=== PATIENT | female | born 1990 | race Two or more races ===

== ENCOUNTER 2024-09-30 12:36 | Inpatient (IN) | payer OTHER ==
[~2024-09-30] VITALS: Ht 167.6 cm; Wt 126.0 kg
[2024-09-30] MEDS: ACETAMINOPHEN 325 MG TAB PO ONE (13:05)
--- NOTE | 2024-09-30 13:12 | ED.PDOC ---
GI ASSESSMENT HPI Comments 33-year-old female presents with a chief complaint of abdominal pain x 3 hours with associated palpitations, fever, nausea, vomiting, diarrhea, and hematuria. Patient states that in the past she was Septic in the past and states that she feels similar to that time. Patient mentions that she has been having the palpitations for the past 3 hours. Patient is not actively vomiting during triage assessment. Chief Complaint: Flank Pain Time Seen by MD: 13:04 Reviewed Notes: Medications, Allergies Allergies: Coded Allergies: Iodine (Verified Allergy, Unknown, 09/30/24) Ketorolac Tromethamine (Verified Allergy, Unknown, 09/30/24) Shellfish Allergy (Verified Allergy, Unknown, 09/30/24) Information Source: Patient Mode of Arrival: Ambulatory Timing: Hours Duration: Since onset Prehospital treatment: None Quality: Sharp Vomitus: Food Particles Stool: Watery, Brown Severity: Moderate Recent: None Recent Hx of: None Pain Location: Diffuse Associated sign and symptoms: Nausea, Vomiting, Diarrhea, Abdominal Pain Past Medical History Past Medical History (Other): SEPSIS Surgical History: Denies all surgeries 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 Family History Family History: Reviewed,noncontributory to illness Social History Smoker: Non-Smoker Alcohol: Denies ETOH Use Drugs: Denies Drug Use Lives In: Home Constitutional: reports: fever; denies: chills, diaphoresis, fatigue, malaise, sweats, weakness, others EENTM: denies: blurred vision, double vision, ear bleeding, ear discharge, ear drainage, ear pain, ear ringing, eye pain, eye redness, hearing loss, mouth pain, mouth swelling, nasal discharge, nose bleeding, nose congestion, nose pain, photophobia, tearing, throat pain, throat swelling, voice changes, others Respiratory: denies: cough, hemoptysis, orthopnea, SOB at rest, shortness of breath, SOB with excertion, stridor, wheezing, others Cardiovascular: reports: palpitations; denies: chest pain, dizzy spells, diaphoresis, Dyspnea on exertion, edema, irregular heart beat, left arm pain, lightheadedness, PND, syncope, others Gastrointestinal: reports: abdominal pain, diarrhea, nausea, vomiting; denies: abdomen distended, blood streaked bowels, constipated, dysphagia, difficulty swallowing, hematemesis, melena, poor appetite, poor fluid intake, rectal bleeding, rectal pain, others Genitourinary: reports: hematuria; denies: abnormal vagina bleeding, burning, dyspareunia, dysuria, flank pain, frequency, incontinence, pain, , vagina discharge, urgency, others Neurological: denies: dizziness, fainting, headache, left sided numbness, left sided weakness, numbness, paresthesia, pre-existing deficit, right sided numbness, right sided weakness, seizure, speech problems, tingling, tremors, weakness, others Musculoskeletal: denies: back pain, gout, joint pain, joint swelling, muscle pain, muscle stiffness, neck pain, others Integumetry: denies: bruises, change in color, change in hair/nails, dryness, laceration, lesions, lumps, rash, wounds, others Allergic/Immunocompromised: denies: Difficulty Healing, Frequent Infections, Hives, Itching, others Hematologic/Lymphatic: denies: anemia, blood clots, easy bleeding, easy bruising, swollen glands, others Endocrine: denies: excessive hunger, excessive sweating, excessive thirst, excessive urination, flushing, intolerance to cold, intolerance to heat, unexplained weight gain, unexplained weight loss, others Psychiatric: denies: anxiety, bipolar disorder, depression, hopeless, panic disorder, schizophrenia, sleepless, suicidal, others All Other Systems: Reviewed and Negative Physical Exam General Appearance: No Apparent Distress, Normal HEENT: Normal ENT Inspection, Pharynx Normal, TMs Normal Neck: Full Range of Motion, Non-Tender, Normal, Normal Inspection Respiratory: Chest Non-Tender, Lungs Clear, No Accessory Muscle Use, No Respiratory Distress, Normal Breath Sounds Cardiovascular: No Edema, No JVD, No Murmur, No Gallop, Normal Peripheral Pulses, Regular Rate/Rhythm Breast Exam: Deferred Gastrointestinal: No Organomegaly, Non Tender, No Pulsatile Mass, Normal Bowel Sounds, Soft Genitalia: Deferred Pelvic: Deferred Rectal: Deferred Extremities: No calf tenderness, Normal capillary refill, Normal inspection, Normal range of motion, Non-tender, No pedal edema Musculoskeletal : Apperance: Normal Neurologic: Alert, 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 Was a procedure done?: No GI differential Dx Differential Diagnosis: Cholecystitis, Constipation, Gastritis/PUD, Gastroenteritis, GI hemorrhage, Hepatitis, Pancreatitis, Electrolyte Imbalance, Viral, Hypovolemia, Malnutrition X-Ray, Labs, Meds, VS Vital Signs Date Time Temp Pulse Resp B/P (MAP) Pulse Ox O2 Delivery O2 Flow Rate FiO2 09/30/24 16:04 109 14 129/70 09/30/24 16:00 105 09/30/24 16:00 106 11 129/70 (89) 97 09/30/24 15:37 130 14 113/85 09/30/24 13:59 135 14 94 Room Air* 0 21 09/30/24 13:56 99.7 134 14 130/68 (88) 94 99.7 09/30/24 12:54 100.4 146 18 110/80 (90) 94 100.4 Lab Test 09/30/24 13:36 09/30/24 12:04 Range/Units White Blood Count 10.9 H 4.4-10.8 10^3/uL Red Blood Count 5.03 4.0-5.20 10^6/uL Hemoglobin 13.7 12.2-16.2 g/dL Hematocrit 41.4 36.0-46.0 % Mean Corpuscular Volume 82.3 80.0-100.0 fL Mean Corpuscular Hemoglobin 27.2 L 28.0-32.0 pg Mean Corpuscular Hemoglobin Concent 33.0 32.0-36.0 g/dL Red Cell Distribution Width 16.0 H 11.8-14.3 % Platelet Count 320 140-450 10^3/uL Mean Platelet Volume 9.2 6.9-10.8 fL Neutrophils (%) (Auto) 77.7 37.0-80.0 % Lymphocytes (%) (Auto) 15.8 10.0-50.0 % Monocytes (%) (Auto) 5.6 0.0-12.0 % Eosinophils (%) (Auto) 0.6 0.0-7.0 % Basophils (%) (Auto) 0.3 0.0-2.0 % Neutrophils # (Auto) 8.4 1.6-8.6 10 ^3/uL Lymphocytes # (Auto) 1.7 0.4-5.4 10 ^3/uL Monocytes # (Auto) 0.6 0-1.3 10 ^3/uL Eosinophils # (Auto) 0.1 0-0.8 10 ^3/uL Basophils # (Auto) 0 0-0.2 10 ^3/uL Nucleated Red Blood Cells 0.0 % Prothrombin Time 12.3 H 9.3-11.8 sec Prothrombin Time INR 1.18 H 0.9-1.15 Activated Partial Thromboplast Time 25.3 24.5-34.5 SEC Sodium Level 141 136-145 mmol/L Potassium Level 3.9 3.5-5.1 mmol/L Chloride Level 109 H 98-107 mmol/L Carbon Dioxide Level 21 20-31 mmol/L Anion Gap 11 5-15 Blood Urea Nitrogen 11 9-23 mg/dL Creatinine 0.85 0.550-1.02 mg/dL Glomerular Filtration Rate Calc 94 >90 mL/min BUN/Creatinine Ratio 12.9 10.0-20.0 Serum Glucose 86 74-106 mg/dL Lactic Acid Level 1.6 0.4-2.0 mmol/L Calcium Level 10.6 H 8.7-10.4 mg/dL Total Bilirubin 0.2 0.2-1.0 mg/dL Aspartate Amino Transferase (AST) 26 13-40 U/L Alanine Aminotransferase (ALT) 33 7-40 U/L Alkaline Phosphatase 172 H 46-116 U/L Total Protein 7.0 5.7-8.2 g/dL Albumin 4.7 3.2-4.8 g/dL Urine Color Light-red Yellow Urine Clarity Ex.turbid Clear Urine pH 6.5 5.0-9.0 Urine Specific [place] 1.014 1.001-1.035 Urine Protein 1+ H Negative Urine Ketones Negative Negative Urine Blood 3+ H Negative /uL Urine Nitrite Negative Negative Urine Bilirubin Negative Negative Urine Urobilinogen Normal Negative mg/dL Urine Leukocyte Esterase 1+ Negative /uL Urine RBC 65194 0 - 4 /hpf Urine Microscopic WBC 14 H 0-5 /HPF Urine Squamous Epithelial Cells None seen <5 /hpf Urine Bacteria None seen None Seen /hpf Urine Glucose Normal Normal mg/dL Current Medications Medications (Trade) Dose Ordered Sig/Arturo Route Start Time Stop Time Status Last Admin Lactated Ringer's 1,700 ml @ 1,700 mls/hr ONCE ONCE IV 09/30/24 13:15 09/30/24 14:14 DC 09/30/24 14:22 Vancomycin HCl 200 ml @ 200 mls/hr ONCE ONCE IV 09/30/24 13:15 09/30/24 14:14 DC 09/30/24 14:27 Cefepime HCl 50 ml @ 50 mls/hr ONCE ONCE IV 09/30/24 14:30 09/30/24 15:29 DC 09/30/24 15:45 Ondansetron HCl (Zofran) 4 mg ONCE ONCE IV 09/30/24 14:30 09/30/24 14:32 DC 09/30/24 14:41 Morphine Sulfate 4 mg ONCE ONCE IV 09/30/24 15:45 09/30/24 15:46 DC 09/30/24 15:37 Ondansetron HCl (Zofran) 4 mg ONCE ONCE IV 09/30/24 15:45 09/30/24 15:46 DC 09/30/24 15:52 Time of 1ST Reevaluation: 13:34 Reevaluation 1ST: Unchanged Patient Education/Counseling: Diagnosis, Treatment Family Education/Counseling: No Family Present SEPSIS Sepsis Screen Physician Orders Chest Portable (09/30/24 13:05) Accucheck (09/30/24 13:05) Blood Culture (09/30/24 13:05) Notify Md If Map <65 Or Bp<90 (09/30/24 13:05) If Map<65 Start Vasopressor (09/30/24 13:05) Sepsis Reassesment After Fluid (09/30/24 14:05) Ct Ab Pel Wo Con-No Oral Or Iv (09/30/24 16:19) Vital Signs Date Time Temp Pulse Resp B/P (MAP) Pulse Ox O2 Delivery O2 Flow Rate FiO2 09/30/24 16:04 109 14 129/70 09/30/24 16:00 105 09/30/24 16:00 106 11 129/70 (89) 97 09/30/24 15:37 130 14 113/85 09/30/24 13:59 135 14 94 Room Air* 0 21 09/30/24 13:56 99.7 134 14 130/68 (88) 94 99.7 09/30/24 12:54 100.4 146 18 110/80 (90) 94 100.4 Laboratory Tests Test 09/30/24 13:36 Lactic Acid Level 1.6 mmol/L (0.4-2.0) White Blood Count 10.9 10^3/uL (4.4-10.8) H Medications Medications Dose Ordered Sig/Arturo Route Start Time Stop Time Status Last Admin Dose Admin Cefepime HCl 50 ml @ 50 mls/hr ONCE ONCE IV 09/30/24 14:30 09/30/24 15:29 DC 09/30/24 15:45 Lactated Ringer's 1,700 ml @ 1,700 mls/hr ONCE ONCE IV 09/30/24 13:15 09/30/24 14:14 DC 09/30/24 14:22 Morphine Sulfate 4 mg ONCE ONCE IV 09/30/24 15:45 09/30/24 15:46 DC 09/30/24 15:37 Ondansetron HCl 4 mg ONCE ONCE IV 09/30/24 14:30 09/30/24 14:32 DC 09/30/24 14:41 Ondansetron HCl 4 mg ONCE ONCE IV 09/30/24 15:45 09/30/24 15:46 DC 09/30/24 15:52 Vancomycin HCl 200 ml @ 200 mls/hr ONCE ONCE IV 09/30/24 13:15 09/30/24 14:14 DC 09/30/24 14:27 Departure 1 Departure Time of Disposition: 18:30 (Patient presented likely septic from pyelonephritis. Patient is empirically cover with antibiotics given fluids and then we will admit patient for further workup.) Impression: Primary Impression: Sepsis Qualified Codes: A41.9 - Sepsis, unspecified organism Additional Impressions: Pyelonephritis Generalized weakness Disposition: ADMITTED INPATIENT Admit to: Tele Condition: Guarded Critical Care Note Critical Care Time?: Yes Critical care comment: Sepsis Authorized and Performed by: Katja Barakat MD Total critical care time: Approximately 58 minutes Due to a high probability of clinically significant, life threatening deterioration, the patient required my highest level of preparedness to intervene emergently and I personally spent this critical care time directly and personally managing the patient. This critical care time included obtaining a history; examining the patient; pulse oximetry; ordering and review of studies; arranging urgent treatment with development of a management plan; evaluation of patient's response to treatment; frequent reassessment; and, discussions with other providers. This critical care time was performed to assess and manage the high probability of imminent, life-threatening deterioration that could result in multi-organ failure. It was exclusive of separately billable procedures and treating other patients and teaching time. Please see my other sections and the rest of the note for further information on patient assessment and treatment. Stability Stability form required: No Heart Score Heart Score: Heart Score Response (Comments) Value History N/A 0 EKG N/A 0 Age N/A 0 Risk Factors N/A 0 Troponin N/A 0 Total 0 I personally scribed for KATJA BARAKAT MD ([email or web address]) on 09/30/24 at 13:12. Electronically submitted by Ifeanyi Chowdhury ([email or web address]). KATJA BARAKAT MD Sep 30, 2024 13:12
--- NOTE | 2024-09-30 13:38 | DVH ---
CHEST RADIOGRAPH Indication: fever Technique: Single frontal view of the chest was obtained COMPARISON: None FINDINGS: Lines and Tubes: None Lungs: Clear Pleura: No effusion. No pneumothorax. Cardiomediastinal contours: Unremarkable Bones: Unremarkable IMPRESSION: No acute disease.
[2024-09-30 13:51] LABS: Hematocrit 41.4 % (36.0-46.0); Hemoglobin 13.7 g/dL (12.2-16.2); Mean Corpuscular Hemoglobin 27.2 pg (28.0-32.0); Mean Corpuscular Volume 82.3 fL (80.0-100.0); Nucleated Red Blood Cells % 0.0 %
[2024-09-30 13:59] VITALS: PULSE 135; RESP 14; O2SAT 94
[2024-09-30 14:04] LABS: INR 1.18 (0.9-1.15); Partial Thromboplastin Time 25.3 SEC (24.5-34.5); Prothrombin Time 12.3 sec (9.3-11.8)
[2024-09-30 14:05] LABS: Alanine Aminotransferase 33 U/L (7-40); Albumin 4.7 g/dL (3.2-4.8); Alkaline Phosphatase 172 U/L (46-116); Anion Gap 11 (5-15); BUN/Creatinine Ratio 12.9 (10.0-20.0); Bilirubin, Total 0.2 mg/dL (0.2-1.0); Blood Urea Nitrogen 11 mg/dL (9-23); Calcium 10.6 mg/dL (8.7-10.4); Carbon Dioxide 21 mmol/L (20-31); Chloride 109 mmol/L (98-107); Glucose 86 mg/dL (74-106); Potassium 3.9 mmol/L (3.5-5.1); Sodium 141 mmol/L (136-145); Total Protein 7.0 g/dL (5.7-8.2)
[2024-09-30] MEDS: LACTATED RINGER'S 1,700 ML IV ONE (14:22)
[2024-09-30] MEDS: VANCOMYCIN 1GM/200ML PM 200 ML IV ONE (14:27)
[2024-09-30] MEDS: ONDANSETRON HCL 4 MG/2 ML VIAL IV ONE ×2 (14:41→15:52)
[2024-09-30] MEDS: MORPHINE SULFATE 4 MG/ML SYR/VIAL IV ONE (15:37)
[2024-09-30 15:39] LABS: Urine Protein, UAD 1+ (Negative)
[2024-09-30] MEDS: CEFEPIME 1GM/ 50ML 50 ML IV ONE (15:45)
[2024-09-30] MEDS ORDERED: ACETAMINOPHEN 325 MG TAB PO PRN (17:15)
--- NOTE | 2024-09-30 17:24 | DVH ---
COMPUTERIZED TOMOGRAPHY ABDOMEN AND PELVIS WITHOUT CONTRAST REASON FOR EXAM: flank pain COMPARISON: None TECHNIQUE: Spiral scans were acquired from the diaphragm to the symphysis pubis without intravenous c ontrast administration. 2-D coronal and sagittal reformatted images were provided. Radiation optimiza tion: All CT scans at this facility use at least one of these dose optimization techniques: Automated exposure control mA and/or kV adjustment per patient size (includes targeted exams where dose is mat ched to clinical indication) or iterative reconstruction. RADIATION DOSE: CTDI: 25 mGy DLP: 1305 mGy-cm FINDINGS: The visualized lung bases are clear. There is no pleural effusion. There is no pericardial effusion. The spleen is not enlarged. The liver is normal in size and contour. The gallbladder is surgically absent. Evaluation of the abdominal organs is suboptimal in the absence of intravenous contrast. Une nhanced appearance of the pancreas is unremarkable. The adrenal glands are normal. The kidneys are s imilar in size. There is no hydronephrosis of either kidney. There is no ureteral or bladder calculus . There is a 3 mm nonobstructive calculus at the inferior pole of the left kidney. There is no abdomi nal aortic aneurysm. There is no pathologic lymphadenopathy by size criteria within the limitations of this noncontrast study. There is no free fluid in the abdomen or pelvis. The uterus and ovaries a re not seen and may be absent. The colonic stool burden is small. The appendix is normal. There is no pathologic distention of the small bowel. No acute osseous abnormality is identified. There is old healed fracture of the right 7th rib laterally. IMPRESSION: Nonobstructive 3 mm calculus at the inferior pole of the left kidney. No ureteral or bladder calculus . No hydronephrosis of either kidney. Normal appendix The uterus and ovaries are not seen and may be absent. Correlate clinically.
[2024-09-30] MEDS: PANTOPRAZOLE 40 MG/10 ML VIAL INJ IV ONE (17:50)
[2024-09-30] MEDS: cefTRIAXone 1GM/50ML D5W 50 ML IV SCH (17:51)
[2024-09-30] MEDS: SODIUM CHLORIDE 0.9% 1,000 ML IV ONE (17:51)
[2024-09-30 19:17] VITALS: PULSE 115; RESP 14; O2SAT 99
--- NOTE | 2024-09-30 19:50 | DVHHP2 ---
History of Present Illness Reason for Visit: Abdominal pain History of Present Illness 33-year-old female presents for evaluation of abdominal pain. Patient reports a one day history of epigastric abdominal pain that radiates to her back with associated nausea, vomiting and diarrhea. No fever or chills. No other acute complaints reported. Past Medical History Asthma Past Surgical History Denies Family History Noncontributory Smoke: No ALCOHOL: none Drugs: None Review of Systems Review of Systems Review of systems are currently negative otherwise addressed in HPI. Allergies: Coded Allergies: Iodine (Verified Allergy, Unknown, 09/30/24) Ketorolac Tromethamine (Verified Allergy, Unknown, 09/30/24) Shellfish Allergy (Verified Allergy, Unknown, 09/30/24) Medications Current Medications Medications Dose Ordered Sig/Arturo Route Start Time Stop Time Status Last Admin Dose Admin Ceftriaxone Sodium 50 ml @ 100 mls/hr DAILY@09 IV 09/30/24 17:23 09/30/24 17:51 100 MLS/HR Pantoprazole Sodium 40 mg DAILY IV 10/01/24 10:00 Acetaminophen/ Hydrocodone Bitart 1 tab Q4HP PRN PO 09/30/24 17:15 Ondansetron HCl 4 mg Q4HP PRN IV 09/30/24 17:15 Acetaminophen 650 mg Q6HP PRN PO 09/30/24 17:15 Morphine Sulfate 2 mg Q6HPRN PRN IV 09/30/24 19:45 UNV Exam Vital Signs Vital Signs Date Time Temp Pulse Resp B/P (MAP) Pulse Ox O2 Delivery O2 Flow Rate FiO2 09/30/24 18:10 138 15 141/87 (105) 96 09/30/24 13:59 Room Air* 0 21 09/30/24 13:56 99.7 99.7 Exam Gen: 33-year-old female in no apparent distress, morbidly obese. Skin: Warm, dry, normal color and texture, no rash. HEENT: Normocephalic atraumatic, mucous membranes moist and pink. Neck: Cervical and supraclavicular nodes normal without enlargement, trachea is midline, thyroid gland is normal without masses. Pulmonary: Clear to auscultation and percussion bilaterally. Cardiac: Regular rate and rhythm. No murmur Abdomen: Soft, nontender, nondistended, bowel sounds present all 4 quadrants, no guarding, no rigidity, no organomegaly. Extremities: No cyanosis, clubbing, no edema Neuro: Cranial nerves II through XII grossly intact, normal affect and speech, no focal motor deficits. Labs/Xrays ORDERING PHYSICIAN: KATJA WATSON MD PROCEDURE(s): CXRP - CHEST PORTABLE REASON: fever ORDER NUMBER(s): [id number], ACCESSION NUMBER(s): [id number] CHEST RADIOGRAPH Indication: fever Technique: Single frontal view of the chest was obtained COMPARISON: None FINDINGS: Lines and Tubes: None Lungs: Clear Pleura: No effusion. No pneumothorax. Cardiomediastinal contours: Unremarkable Bones: Unremarkable IMPRESSION: No acute disease. RING PHYSICIAN: KATJA WATSON MD PROCEDURE(s): ABPL - CT AB PEL WO CON-NO ORAL OR IV REASON: flank pain ORDER NUMBER(s): [id number], ACCESSION NUMBER(s): [id number] COMPUTERIZED TOMOGRAPHY ABDOMEN AND PELVIS WITHOUT CONTRAST REASON FOR EXAM: flank pain COMPARISON: None TECHNIQUE: Spiral scans were acquired from the diaphragm to the symphysis pubis without intravenous contrast administration. 2-D coronal and sagittal reformatted images were provided. Radiation optimization: All CT scans at this facility use at least one of these dose optimization techniques: Automated exposure control mA and/or kV adjustment per patient size (includes targeted exams where dose is matched to clinical indication) or iterative reconstruction. RADIATION DOSE: CTDI: 25 mGy DLP: 1305 mGy-cm FINDINGS: The visualized lung bases are clear. There is no pleural effusion. There is no pericardial effusion. The spleen is not enlarged. The liver is normal in size and contour. The gallbladder is surgically absent. Evaluation of the abdominal organs is suboptimal in the absence of intravenous contrast. Unenhanced appearance of the pancreas is unremarkable. The adrenal glands are normal. The kidneys are similar in size. There is no hydronephrosis of either kidney. There is no ureteral or bladder calculus. There is a 3 mm nonobstructive calculus at the inferior pole of the left kidney. There is no abdominal aortic aneurysm. There is no pathologic lymphadenopathy by size criteria within the limitations of this noncontrast study. There is no free fluid in the abdomen or pelvis. The uterus and ovaries are not seen and may be absent. The colonic stool burden is small. The appendix is normal. There is no pathologic distention of the small bowel. No acute osseous abnormality is identified. There is old healed fracture of the right 7th rib laterally. IMPRESSION: Nonobstructive 3 mm calculus at the inferior pole of the left kidney. No ureteral or bladder calculus. No hydronephrosis of either kidney. Normal appendix The uterus and ovaries are not seen and may be absent. Correlate clinically. Labs Test 09/30/24 17:59 09/30/24 13:36 09/30/24 12:04 Range/Units Lipase 36 12-53 U/L White Blood Count 10.9 H 4.4-10.8 10^3/uL Red Blood Count 5.03 4.0-5.20 10^6/uL Hemoglobin 13.7 12.2-16.2 g/dL Hematocrit 41.4 36.0-46.0 % Mean Corpuscular Volume 82.3 80.0-100.0 fL Mean Corpuscular Hemoglobin 27.2 L 28.0-32.0 pg Mean Corpuscular Hemoglobin Concent 33.0 32.0-36.0 g/dL Red Cell Distribution Width 16.0 H 11.8-14.3 % Platelet Count 320 140-450 10^3/uL Mean Platelet Volume 9.2 6.9-10.8 fL Neutrophils (%) (Auto) 77.7 37.0-80.0 % Lymphocytes (%) (Auto) 15.8 10.0-50.0 % Monocytes (%) (Auto) 5.6 0.0-12.0 % Eosinophils (%) (Auto) 0.6 0.0-7.0 % Basophils (%) (Auto) 0.3 0.0-2.0 % Neutrophils # (Auto) 8.4 1.6-8.6 10 ^3/uL Lymphocytes # (Auto) 1.7 0.4-5.4 10 ^3/uL Monocytes # (Auto) 0.6 0-1.3 10 ^3/uL Eosinophils # (Auto) 0.1 0-0.8 10 ^3/uL Basophils # (Auto) 0 0-0.2 10 ^3/uL Nucleated Red Blood Cells 0.0 % Prothrombin Time 12.3 H 9.3-11.8 sec Prothrombin Time INR 1.18 H 0.9-1.15 Activated Partial Thromboplast Time 25.3 24.5-34.5 SEC Sodium Level 141 136-145 mmol/L Potassium Level 3.9 3.5-5.1 mmol/L Chloride Level 109 H 98-107 mmol/L Carbon Dioxide Level 21 20-31 mmol/L Anion Gap 11 5-15 Blood Urea Nitrogen 11 9-23 mg/dL Creatinine 0.85 0.550-1.02 mg/dL Glomerular Filtration Rate Calc 94 >90 mL/min BUN/Creatinine Ratio 12.9 10.0-20.0 Serum Glucose 86 74-106 mg/dL Lactic Acid Level 1.6 0.4-2.0 mmol/L Calcium Level 10.6 H 8.7-10.4 mg/dL Total Bilirubin 0.2 0.2-1.0 mg/dL Aspartate Amino Transferase (AST) 26 13-40 U/L Alanine Aminotransferase (ALT) 33 7-40 U/L Alkaline Phosphatase 172 H 46-116 U/L Total Protein 7.0 5.7-8.2 g/dL Albumin 4.7 3.2-4.8 g/dL Urine Color Light-red Yellow Urine Clarity Ex.turbid Clear Urine pH 6.5 5.0-9.0 Urine Specific [place] 1.014 1.001-1.035 Urine Protein 1+ H Negative Urine Ketones Negative Negative Urine Blood 3+ H Negative /uL Urine Nitrite Negative Negative Urine Bilirubin Negative Negative Urine Urobilinogen Normal Negative mg/dL Urine Leukocyte Esterase 1+ Negative /uL Urine RBC 83614 0 - 4 /hpf Urine Microscopic WBC 14 H 0-5 /HPF Urine Squamous Epithelial Cells None seen <5 /hpf Urine Bacteria None seen None Seen /hpf Urine Glucose Normal Normal mg/dL SEPSIS Sepsis Screen Date sepsis recognized/suspect: Sep 30, 2024 Time Sepsis recognized/suspect: 1445 Recent Procedure: No On Antibiotic Therapy: Yes Respiratory Rate >20: No Heart Rate >90: Yes Temp<36 C (96.8 F) or >38.3 C: Yes SBP <90 or MAP <65 mmHG: No New Acute Mental Status Change: No Is the patient on CPAP, BIPAP,: No Physician Orders Chest Portable (09/30/24 13:05) Accucheck (09/30/24 13:05) Blood Culture (09/30/24 13:05) Notify Md If Map <65 Or Bp<90 (09/30/24 13:05) If Map<65 Start Vasopressor (09/30/24 13:05) Sepsis Reassesment After Fluid (09/30/24 14:05) Ct Ab Pel Wo Con-No Oral Or Iv (09/30/24 16:19) Basic Metabolic Panel (10/01/24 04:00) Sodium Chloride 0.9% (09/30/24 17:15) Pantoprazole (Protonix) (10/01/24 10:00) Admit (09/30/24 17:01) Hydrocodone-Acet 5/325mg Tab ([place] 32 (09/30/24 17:15) Ondansetron Hcl (Zofran) (09/30/24 17:15) Complete Blood Count (10/01/24 04:00) Condition: Stable (09/30/24 17:01) Acetaminophen Tablet (Tylenol Tablet) (09/30/24 17:15) Clear Liq Diet (09/30/24 Dinner) Bedrest With Bathroom Privileg (09/30/24 17:01) Ceftriaxone 1gm/50ml D5w (Rocephin) (09/30/24 17:23) Drug Screen (09/30/24 19:42) Morphine Sulfate Injection (09/30/24 19:45) Metoclopramide Injection (Reglan Injecti (09/30/24 19:45) Vital Signs Date Time Temp Pulse Resp B/P (MAP) Pulse Ox O2 Delivery O2 Flow Rate FiO2 09/30/24 18:10 138 15 141/87 (105) 96 09/30/24 16:04 109 14 129/70 09/30/24 16:00 105 09/30/24 16:00 106 11 129/70 (89) 97 09/30/24 15:37 130 14 113/85 09/30/24 13:59 135 14 94 Room Air* 0 21 09/30/24 13:56 99.7 134 14 130/68 (88) 94 99.7 09/30/24 12:54 100.4 146 18 110/80 (90) 94 100.4 Laboratory Tests Test 09/30/24 13:36 Lactic Acid Level 1.6 mmol/L (0.4-2.0) White Blood Count 10.9 10^3/uL (4.4-10.8) H Medications Medications Dose Ordered Sig/Arturo Route Start Time Stop Time Status Last Admin Dose Admin Cefepime HCl 50 ml @ 50 mls/hr ONCE ONCE IV 09/30/24 14:30 09/30/24 15:29 DC 09/30/24 15:45 50 MLS/HR Ceftriaxone Sodium 50 ml @ 100 mls/hr DAILY@09 IV 09/30/24 17:23 09/30/24 17:51 100 MLS/HR Lactated Ringer's 1,700 ml @ 1,700 mls/hr ONCE ONCE IV 09/30/24 13:15 09/30/24 14:14 DC 09/30/24 14:22 1,700 MLS/HR Morphine Sulfate 4 mg ONCE ONCE IV 09/30/24 15:45 09/30/24 15:46 DC 09/30/24 15:37 4 MG Ondansetron HCl 4 mg ONCE ONCE IV 09/30/24 14:30 09/30/24 14:32 DC 09/30/24 14:41 4 MG Ondansetron HCl 4 mg ONCE ONCE IV 09/30/24 15:45 09/30/24 15:46 DC 09/30/24 15:52 4 MG Pantoprazole Sodium 40 mg ONCE ONCE IV 09/30/24 17:15 09/30/24 17:23 DC 09/30/24 17:50 40 MG Sodium Chloride 1,000 ml @ 100 mls/hr Q10H ONCE IV 09/30/24 17:15 10/01/24 03:14 09/30/24 17:51 100 MLS/HR Vancomycin HCl 200 ml @ 200 mls/hr ONCE ONCE IV 09/30/24 13:15 09/30/24 14:14 DC 09/30/24 14:27 200 MLS/HR Assessment/Plan Assessment/Plan Assessment Acute abdominal pain Morbid obesity Opioid dependence Chronic pain syndrome UTI Plan Admit the patient to [facility] to the hospitalist Maria Esther Pain management Continue treatment per orders. Plan discussed with: Patient My Orders Orders - EULALIO SAMPSON Procedure Category Date Status Time Basic Metabolic Panel LAB 10/01/24 Verified 04:00 Sodium Chloride 0.9% PHA 09/30/24 In Process 17:15 Pantoprazole PHA 10/01/24 In Process (Protonix) 10:00 Admit ADMIT 09/30/24 Transmitted 17:01 Hydrocodone-Acet PHA 09/30/24 In Process 5/325mg Tab ([place] 17:15 Ondansetron Hcl PHA 09/30/24 In Process (Zofran) 17:15 Complete Blood Count LAB 10/01/24 Verified 04:00 Condition: Stable MELISSA 09/30/24 In Process 17:01 Acetaminophen Tablet PHA 09/30/24 In Process (Tylenol Tablet) 17:15 Clear Liq Diet DIET 09/30/24 Transmitted Dinner Bedrest With Bathroom MELISSA 09/30/24 In Process Privileg 17:01 Ceftriaxone 1gm/50ml PHA 09/30/24 In Process D5w (Rocephin) 17:23 Drug Screen LAB 09/30/24 In Process 19:42 Morphine Sulfate PHA 09/30/24 Logged Injection 19:45 Metoclopramide PHA 09/30/24 Logged Injection (Reglan 19:45 Date of Service: Sep 30, 2024 Billing Provider: EULALIO SAMPSON Common Visit Codes: [id number] INP/OBS CARE (MOD) EULALIO SAMPSON Sep 30, 2024 19:50
[2024-09-30 20:07] LABS: Benzodiazephine Screen, Urine Neg (NEGATIVE); Phencyclidine Screen, Urine Neg (NEGATIVE)
[2024-09-30 20:08] LABS: Amphetamine Screen, Urine Neg (NEGATIVE); Barbiturate Scree,Urine Neg (NEGATIVE); Cannabinoid Screen, Urine Neg (NEGATIVE); Cocaine Screen, Urine Neg (NEGATIVE); Opiate Scree,Urine Neg (NEGATIVE)
[2024-09-30] MEDS: MORPHINE SULFATE INJ 2 MG/ml SYRG IV PRN (20:09)
[2024-09-30] MEDS: METOCLOPRAMIDE HCL 5MG/ml INJ 2ml VIAL IV ONE (20:09)
[2024-09-30 21:27] VITALS: BP 106/73; PULSE 88; RESP 18; TEMP 98.1; O2SAT 98
[2024-09-30] MEDS ORDERED: CEFEPIME 1GM/ 50ML 50 ML IV SCH (22:00)
[2024-09-30] MEDS ORDERED: HYDR-4798 PO (23:09)
[2024-09-30] MEDS ORDERED: TOPI100T68 PO (23:09)
[2024-09-30] MEDS ORDERED: ALBUAER3 IN (23:09)
[2024-09-30] MEDS ORDERED: LORA-1121 PO (23:09)
[2024-09-30] MEDS ORDERED: FLUT250M2 IN (23:09)
[2024-09-30 23:31] VITALS: PULSE 88; RESP 16; RESP 18; O2SAT 98
[2024-10-01] VITALS (13 sets, daily range): BP systolic 101–121; BP diastolic 44–94; PULSE 61–102; RESP 16–20; TEMP 97.4–98.4; O2SAT 95–100
[2024-10-01] MEDS: ONDANSETRON HCL 4 MG/2 ML VIAL IV PRN (02:13)
[2024-10-01] MEDS: MORPHINE SULFATE INJ 2 MG/ml SYRG IV PRN (02:14)
[2024-10-01] MEDS: TOPIRAMATE 100 MG TAB PO SCH (02:33)
[2024-10-01] MEDS: PANTOPRAZOLE 40 MG/10 ML VIAL INJ IV SCH (09:03)
[2024-10-01] MEDS: HYDROmorphone HCL 2 MG/ML VL/or syr IV ONE (09:36)
[2024-10-01] MEDS ORDERED: MORPHINE SULFATE INJ 2 MG/ml SYRG IV PRN (10:45)
--- NOTE | 2024-10-01 11:06 | DVH ---
Technique: Real-time ultrasound images of the bladder are obtained. Indication: HEMATURIA Comparison: None Findings: Bladder volume of 450 cc. Left ureteral jet nonvisualized. No focal wall thickening seen. Impression: Left ureteral jet nonvisualized. No focal bladder wall thickening seen. Recommend urology consultation for cystoscopy to further evalu ate
--- NOTE | 2024-10-01 11:07 | DVH ---
Technique: Real-time ultrasound imaging of the abdomen was performed with grayscale and color Doppler . Indication: RUQ and Flank pain, pubic tenderness Comparison: None Findings: Liver measures 21 cm. It is increased in echogenicity and echotexture without focal mass. Portal vei n is normal in caliber and demonstrates normal hepatopetal flow. Gallbladder is removed. The common bile duct measures 8 mm. No intrahepatic biliary ductal dilatation. The right kidney measures 10.2 cm. The left kidney measures 11.7 cm. No hydronephrosis or sonographic evidence of nephrolithiasis. The visualized portion of the pancreas is unremarkable. Spleen measures 10.6 cm. The visualized portion of the IVC is unremarkable. Imaged portion of the aorta measures 1.9 cm in max imum diameter. Impression: Echogenic liver which can be seen with hepatic steatosis, cirrhosis. Cholecystectomy Hepatomegaly. Dilated common bile duct likely secondary to underlying cholecystectomy. Correlate clinically.
[2024-10-01 12:11] LABS: Hematocrit 38.5 % (36.0-46.0); Hemoglobin 12.5 g/dL (12.2-16.2); Mean Corpuscular Hemoglobin 27.0 pg (28.0-32.0); Mean Corpuscular Volume 83.5 fL (80.0-100.0); Nucleated Red Blood Cells % 0.1 %
[2024-10-01 12:20] LABS: Alanine Aminotransferase 33 U/L (7-40); Albumin 4.7 g/dL (3.2-4.8); Anion Gap 10 (5-15); BUN/Creatinine Ratio 10.0 (10.0-20.0); Bilirubin, Total 0.3 mg/dL (0.2-1.0); Calcium 9.7 mg/dL (8.7-10.4); Carbon Dioxide 24 mmol/L (20-31); Glucose 76 mg/dL (74-106); Lipase 33 U/L (12-53); Potassium 3.7 mmol/L (3.5-5.1); Sodium 141 mmol/L (136-145); Total Protein 7.1 g/dL (5.7-8.2)
[2024-10-01 12:24] LABS: Alkaline Phosphatase 163 U/L (46-116); Blood Urea Nitrogen 8 mg/dL (9-23); Chloride 107 mmol/L (98-107)
[2024-10-01] MEDS: SODIUM CHLORIDE 0.9% 1,000 ML IV SCH (12:30)
[2024-10-01] MEDS: ALBUTEROL SULF 2.5 MG/0.5ML(0.5%) NEB SOLN NEB SCH (12:58)
[2024-10-01] MEDS: TAMSULOSIN HYDROCHLORIDE 0.4 MG CAP PO ONE (13:09)
[2024-10-01] MEDS: MORPHINE SULFATE 4 MG/ML SYR/VIAL IV PRN (13:16)
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
[2024-10-01] MEDS ORDERED: LORazepam 2MG/ML-1ML VIAL ONE (21:11)
[2024-10-01] MEDS: LORazepam 2MG/ML-1ML VIAL IV PRN (21:59)
[2024-10-02] VITALS (12 sets, daily range): BP systolic 91–121; BP diastolic 52–88; PULSE 66–113; RESP 17–18; TEMP 97.1–98.8; O2SAT 95–99
[2024-10-02 07:48] LABS: Alanine Aminotransferase 27 U/L (7-40); Albumin 3.8 g/dL (3.2-4.8); Alkaline Phosphatase 132 U/L (46-116); Anion Gap 6 (5-15); BUN/Creatinine Ratio 8.0 (10.0-20.0); Blood Urea Nitrogen 6 mg/dL (9-23); Calcium 9.7 mg/dL (8.7-10.4); Carbon Dioxide 24 mmol/L (20-31); Chloride 111 mmol/L (98-107); Glucose 85 mg/dL (74-106); Potassium 3.8 mmol/L (3.5-5.1); Sodium 141 mmol/L (136-145); Total Protein 5.8 g/dL (5.7-8.2)
[2024-10-02 07:50] LABS: Bilirubin, Total 0.2 mg/dL (0.2-1.0)
--- NOTE | 2024-10-02 10:45 | DVHINCON2 ---
Date of service: Oct 02, 2024 Referring Physician Hospitalist Reason for Consultation kidney stone History of Present Illness History Source: Patient, RN Notes, MD Notes, Old Records Exam Limitations: No limitations HPI 33 yo female with complex medical and psychosocial history including hx of seizures, PTSD, intentional overdose by ingestion of benadryl 130 tablets (2023), chronic pain, drug seeking behavior and excessive ER visits frequently leaving AMA and becoming aggressive with staff when not given IV meds, kidney stones and recurrent UTI. Hx of hysterectomy, cholecystectomy. c/o left flank pain 12/24. pt has a known 3 mm left renal stone unchanged since 2022. Has urology appt in [facility] 10/11/24. She states she has recurring urinary retention and hematuria. Home Meds Reported Medications Fluticasone-Salmeterol (Advair Diskus 250/50) Unknown Strength Ih, IN, INH 09/30/24 Albuterol Sulfate (VENTOLIN MDI) Unknown Strength Ih, IN, INH 09/30/24 Lorazepam (ATIVAN TABLET) Unknown Strength Tb, PO PRN for SEIZURES, TAB 09/30/24 Topiramate (Topiramate) 100 Mg Tab, 200 MG PO HS for SEIZURES, TAB 09/30/24 Hydrocodone-Acetaminophen (Hydrocodone Bitartrate/AC 10-325 mg) 1 Tab Tab, 1 TAB PO QIDPRN, TAB 09/30/24 Past Medical History Patient Family History: Patient reports no known family medical history. H&P Exam Vital Signs Vital Signs Date Time Temp Pulse Resp B/P (MAP) Pulse Ox O2 Delivery O2 Flow Rate FiO2 10/02/24 08:38 84 20 103/82 10/02/24 06:28 99 Room Air* 0 21 10/02/24 05:00 98.1 98.1 Labs/Xrays [address] [address] Ph: [phone] DIAGNOSTIC IMAGING Diagnostic Imaging Report : [id number] Signed PATIENT: DARREN SALEHCCT: [id number] UNIT: [id number] : 1990 [facility]GE / SEX: 33 / F ADM STATUS: ADM IN SERVICE [id number] ORDERING PHYSICIAN: KATJA WATSON MD PROCEDURE(s): ABPL - CT AB PEL WO CON-NO ORAL OR IV REASON: flank pain ORDER NUMBER(s): [id number], ACCESSION NUMBER(s): [id number] COMPUTERIZED TOMOGRAPHY ABDOMEN AND PELVIS WITHOUT CONTRAST REASON FOR EXAM: flank pain COMPARISON: None TECHNIQUE: Spiral scans were acquired from the diaphragm to the symphysis pubis without intravenous contrast administration. 2-D coronal and sagittal reformatted images were provided. Radiation optimization: All CT scans at this facility use at least one of these dose optimization techniques: Automated exposure control mA and/or kV adjustment per patient size (includes targeted exams where dose is matched to clinical indication) or iterative reconstruction. RADIATION DOSE: CTDI: 25 mGy DLP: 1305 mGy-cm FINDINGS: The visualized lung bases are clear. There is no pleural effusion. There is no pericardial effusion. The spleen is not enlarged. The liver is normal in size and contour. The gallbladder is surgically absent. Evaluation of the abdominal organs is suboptimal in the absence of intravenous contrast. Unenhanced appearance of the pancreas is unremarkable. The adrenal glands are normal. The kidneys are similar in size. There is no hydronephrosis of either kidney. There is no ureteral or bladder calculus. There is a 3 mm nonobstructive calculus at the inferior pole of the left kidney. There is no abdominal aortic aneurysm. There is no pathologic lymphadenopathy by size criteria within the limitations of this noncontrast study. There is no free fluid in the abdomen or pelvis. The uterus and ovaries are not seen and may be absent. The colonic stool burden is small. The appendix is normal. There is no pathologic distention of the small bowel. No acute osseous abnormality is identified. There is old healed fracture of the right 7th rib laterally. IMPRESSION: Nonobstructive 3 mm calculus at the inferior pole of the left kidney. No ureteral or bladder calculus. No hydronephrosis of either kidney. Normal appendix The uterus and ovaries are not seen and may be absent. Correlate clinically. ATED BY: DOMINGUEZ CASTILLO MD DICTATED DATE/TIME: 09/30/241721 SIGNED BY: DOMINGUEZ CASTILLO MD SIGNED DATE/TIME: 09/30/241721 CC: [address] [place] - [address] Ph: [phone] DIAGNOSTIC IMAGING Diagnostic Imaging Report : [id number] Signed PATIENT: DARREN SALEHCCT: [id number] UNIT: [id number] : 1990 LOC: [facility] ROOM / BED: [address] [place] [address] AGE / SEX: 33 / F ADM STATUS: ADM IN SERVICE [id number] ORDERING PHYSICIAN: DINESH ANDERSON RESIDENT PROCEDURE(s): BLDR - BLADDER REASON: HEMATURIA ORDER NUMBER(s): [id number], ACCESSION NUMBER(s): [id number] Technique: Real-time ultrasound images of the bladder are obtained. Indication: HEMATURIA Comparison: None Findings: Bladder volume of 450 cc. Left ureteral jet nonvisualized. No focal wall thickening seen. Impression: Left ureteral jet nonvisualized. No focal bladder wall thickening seen. Recommend urology consultation for cystoscopy to further evaluate ATED BY: ZAN MITCHELL MD DICTATED DATE/TIME: 10/01/24 1105 SIGNED BY: ZAN MITCHELL MD SIGNED DATE/TIME: 10/01/24 110 CC: Labs Test 10/02/24 06:54 10/01/24 21:05 10/01/24 11:10 09/30/24 13:36 Range/Units Sodium Level 141 136-145 mmol/L Potassium Level 3.8 3.5-5.1 mmol/L Chloride Level 111 H 98-107 mmol/L Carbon Dioxide Level 24 20-31 mmol/L Anion Gap 6 5-15 Blood Urea Nitrogen 6 L 9-23 mg/dL Creatinine 0.75 0.550-1.02 mg/dL Glomerular Filtration Rate Calc 109 >90 mL/min BUN/Creatinine Ratio 8.0 L 10.0-20.0 Serum Glucose 85 74-106 mg/dL Calcium Level 9.7 8.7-10.4 mg/dL Total Bilirubin 0.2 0.2-1.0 mg/dL Aspartate Amino Transferase (AST) 28 13-40 U/L Alanine Aminotransferase (ALT) 27 7-40 U/L Alkaline Phosphatase 132 H 46-116 U/L Total Protein 5.8 5.7-8.2 g/dL Albumin 3.8 3.2-4.8 g/dL POC Glucose 109 H 70-106 mg/dl White Blood Count 4.5 # 4.4-10.8 10^3/uL Red Blood Count 4.61 4.0-5.20 10^6/uL Hemoglobin 12.5 12.2-16.2 g/dL Hematocrit 38.5 36.0-46.0 % Mean Corpuscular Volume 83.5 80.0-100.0 fL Mean Corpuscular Hemoglobin 27.0 L 28.0-32.0 pg Mean Corpuscular Hemoglobin Concent 32.4 32.0-36.0 g/dL Red Cell Distribution Width 15.5 H 11.8-14.3 % Platelet Count 235 140-450 10^3/uL Mean Platelet Volume 9.5 6.9-10.8 fL Neutrophils (%) (Auto) 69.8 37.0-80.0 % Lymphocytes (%) (Auto) 22.5 10.0-50.0 % Monocytes (%) (Auto) 6.5 0.0-12.0 % Eosinophils (%) (Auto) 1.1 0.0-7.0 % Basophils (%) (Auto) 0.1 0.0-2.0 % Neutrophils # (Auto) 3.2 1.6-8.6 10 ^3/uL Lymphocytes # (Auto) 1.0 0.4-5.4 10 ^3/uL Monocytes # (Auto) 0.3 0-1.3 10 ^3/uL Eosinophils # (Auto) 0 0-0.8 10 ^3/uL Basophils # (Auto) 0 0-0.2 10 ^3/uL Nucleated Red Blood Cells 0.1 % Lipase 33 12-53 U/L Prothrombin Time 12.3 H 9.3-11.8 sec Prothrombin Time INR 1.18 H 0.9-1.15 Activated Partial Thromboplast Time 25.3 24.5-34.5 SEC Lactic Acid Level 1.6 0.4-2.0 mmol/L Test 09/30/24 12:04 Range/Units Urine Color Light-red Yellow Urine Clarity Ex.turbid Clear Urine pH 6.5 5.0-9.0 Urine Specific [place] 1.014 1.001-1.035 Urine Protein 1+ H Negative Urine Ketones Negative Negative Urine Blood 3+ H Negative /uL Urine Nitrite Negative Negative Urine Bilirubin Negative Negative Urine Urobilinogen Normal Negative mg/dL Urine Leukocyte Esterase 1+ Negative /uL Urine RBC [id number] 0 - 4 /hpf Urine Microscopic WBC 14 H 0-5 /HPF Urine Squamous Epithelial Cells None seen <5 /hpf Urine Bacteria None seen None Seen /hpf Urine Glucose Normal Normal mg/dL Urine Opiates Screen Neg NEGATIVE Urine Fentanyl Screen Neg NEGATIVE Urine Barbiturates Screen Neg NEGATIVE Urine Phencyclidine Screen Neg NEGATIVE Urine Amphetamines Screen Neg NEGATIVE Urine Benzodiazepines Screen Neg NEGATIVE Urine Cocaine Screen Neg NEGATIVE Urine Cannabinoids Screen Neg NEGATIVE Microbiology Date/Time Source Procedure Growth Status 10/01/24 11:45 Voided Urine Urine Culture - Preliminary Resulted 09/30/24 13:36 Blood Blood Culture - Preliminary NO GROWTH AFTER 24 HOURS OF INCUBATION. Resulted Assessment/Plan Problem List: (1) Calculus of kidney (2) Voiding dysfunction (3) Hematuria (4) Drug-seeking behavior (5) Hx of drug overdose (6) Constipation Plan recurring UTI - UA with hematuria but no growth on culture. suspect non infectious etiology. non obstructing left renal stone 3 mm - stable since 2022 no obstruction or infection renal function is pristine, follow up with urology as planned 10/11/24 bladder prolapse by history - out pt work up with urology pending 10/11/24 hematuria - likely from stone or cystitis no evidence of obstruction of malignancy. cystoscopy as outpt constipation and hemorrhoids may contribute to urinary symptoms No acute urologic intervention indicated at this time. signing off Plan discussed with: Patient, Other HANNA EDWARDS NP Oct 02, 2024 10:45
[2024-10-02 11:49] LABS: Hematocrit 38.6 % (36.0-46.0); Hemoglobin 12.5 g/dL (12.2-16.2); Mean Corpuscular Hemoglobin 27.4 pg (28.0-32.0); Mean Corpuscular Volume 84.6 fL (80.0-100.0); Nucleated Red Blood Cells % 0.4 %
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
[2024-10-02] MEDS: ALBUTEROL SULF 2.5 MG/0.5ML(0.5%) NEB SOLN NEB PRN (14:15)
[2024-10-02] MEDS: TAMSULOSIN HYDROCHLORIDE 0.4 MG CAP PO SCH (17:59)
[2024-10-02] MEDS: HYDROcodone-ACET 5/325MG TAB PO PRN (18:28)
[2024-10-02] MEDS: levETIRAcetam 500 mg/100ml 100 ML IV SCH (20:55)
[2024-10-03] VITALS (12 sets, daily range): BP systolic 90–131; BP diastolic 55–83; PULSE 59–89; RESP 16–18; TEMP 97.1–98.3; O2SAT 93–100
[2024-10-03] MEDS ORDERED: SODIUM CHLORIDE 0.9% 1,000 ML IV ONE (10:15)
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
== END 2024-10-03 14:55 | disposition left against medical advice (07) | DRG 720 ==
LOC: ER 12:36 → OVERFLOW 17:01 → WEST WING 21:27 → TELE-WESTW 10-01 23:39
PROVIDERS: ADMIT Internal Medicine; ATTEND Internal Medicine
DX: A41.9 Sepsis, unspecified organism (principal); N12 Tubulo-interstitial nephritis, not specified as acute or chronic; N20.0 Calculus of kidney; N39.0 Urinary tract infection, site not specified; E66.01 Morbid (severe) obesity due to excess calories; F11.20 Opioid dependence, uncomplicated; K59.00 Constipation, unspecified; R31.9 Hematuria, unspecified; J45.909 Unspecified asthma, uncomplicated; G89.4 Chronic pain syndrome; Z68.41 Body mass index [BMI] 40.0-44.9, adult; Z76.5 Malingerer [conscious simulation]; Z88.8 Allergy status to other drugs, medicaments and biological substances; Z91.013 Allergy to seafood; Z90.710 Acquired absence of both cervix and uterus; Z90.49 Acquired absence of other specified parts of digestive tract; Z53.21 Procedure and treatment not carried out due to patient leaving prior to being seen by health care provider
CPT/HCPCS: 36415; 71045; 74176; 76700; 76857; 80053; 80307; 81001; 82962; 83605; 83690; 85025; 85610; 85730; 87040; 87086; 94640; 96365; 96375; 99291; G0378; J2405; J2470

== ENCOUNTER 2024-12-26 20:11 | Emergency (ER) | payer MEDICAID, OTHER ==
[~2024-12-26] VITALS: Ht 167.6 cm; Wt 119.5 kg
[~2024-12-26 20:11] MED LIST: ALBUAER3 IN; FLUT250M2 IN; HYDR-4798 PO; LORA-1121 PO; TOPI100T68 PO
[2024-12-26 20:21] VITALS: BP 106/83; PULSE 139; RESP 15; TEMP 99.6; O2SAT 99
--- NOTE | 2024-12-26 21:31 | DVH ---
EXAM: CT CT AB PEL WO CON-NO ORAL OR IV INDICATION: flank pain TECHNIQUE: Volumetric multidetector CT images of the abdomen and pelvis were obtained without contras t. All CT scans at this facility use dose modulation, iterative reconstruction, and/or weight based d osing when appropriate to reduce radiation dose to as low as reasonably achievable. COMPARISON: CT ABD/PEL on DOS: 12/26/24 FINDINGS: [LOWER CHEST]: The partially visualized lung bases are clear without a pleural effusion. The cardiac size is normal without pericardial effusion. [LIVER]: Normal hepatic size without suspicious focal lesion. [GALLBLADDER AND BILIARY TREE]: Surgically absent. [SPLEEN]: Unremarkable. [PANCREAS]: Unremarkable. [ADRENAL GLANDS]: Unremarkable [KIDNEYS]: No hydronephrosis. Left inferior caliceal stone measuring 5 mm, nonobstructive [BLADDER]: Unremarkable for the degree distention. [REPRODUCTIVE ORGANS]: Hysterectomy. [BOWEL/MESENTERY]: Stomach is normal. No CT evidence of bowel obstruction. [id number] stool bur den. Normal appendix. [ASCITES]: Absent [LYMPHADENOPATHY]: No pathologically enlarged lymph nodes by CT size criteria [VASCULATURE]: No aneurysmal dilatation. [ABDOMINAL WALL]: Unremarkable. [MUSCULOSKELETAL]: No acute fracture or aggressive focal osseous lesion. Suspected prior right anteri or 8th rib fracture with callus formation. IMPRESSION: 1. No hydronephrosis. 2. Nonobstructive left inferior caliceal stone measuring 5 mm. 3. No distal ureterolithiasis
[2024-12-26 21:40] LABS: Hematocrit 37.0 % (36.0-46.0); Hemoglobin 12.4 g/dL (12.2-16.2); Mean Corpuscular Hemoglobin 26.7 pg (28.0-32.0); Mean Corpuscular Volume 79.5 fL (80.0-100.0); Nucleated Red Blood Cells % 0.1 %
--- NOTE | 2024-12-26 21:44 | ED.PDOC ---
GI ASSESSMENT HPI Comments 34-year-old female with history of retained placenta status post hysterectomy, seizure disorder on topiramate, history of nephrolithiasis, anxiety, presented to the ER with a chief complaint of bilateral flank pain and chest pain for past 3 days. Patient reports that she has been experiencing bilateral flank pain for the past 3 days associated with tinged urine, nausea and vomiting, unable to keep any solids or liquid food down, she started experiencing substernal retic chest pain which increases on deep breaths, does not radiate, and is sharp in nature. Unrelated to exertion or food. Denies smoking, drinking, drug use Home medications: Topiramate HS On arrival to the ER, patient was tachycardic, pulse 130s, sinus tachycardia. Left-sided CVA tenderness on examination. Chief Complaint: Chest Pain Time Seen by MD: 20:45 Reviewed Notes: Nurses Notes Allergies: Coded Allergies: Iodine (Verified Allergy, Unknown, 09/30/24) Ketorolac Tromethamine (Verified Allergy, Unknown, 09/30/24) Shellfish Allergy (Verified Allergy, Unknown, 09/30/24) Home Meds Reported Medications Fluticasone-Salmeterol (Advair Diskus 250/50) Unknown Strength Ih, IN, INH 09/30/24 Albuterol Sulfate (VENTOLIN MDI) Unknown Strength Ih, IN, INH 09/30/24 Lorazepam (ATIVAN TABLET) Unknown Strength Tb, PO PRN for SEIZURES, TAB 09/30/24 Topiramate (Topiramate) 100 Mg Tab, 200 MG PO HS for SEIZURES, TAB 09/30/24 Hydrocodone-Acetaminophen (Hydrocodone Bitartrate/AC 10-325 mg) 1 Tab Tab, 1 TAB PO QIDPRN, TAB 09/30/24 Information Source: Patient Mode of Arrival: Ambulatory Past Medical History Surgical History: Denies all surgeries FINISHING FRAME RUNNER History: Denies all FINISHING FRAME RUNNER Hx Family History Family History: Reviewed,noncontributory to illness Social History Smoker: Non-Smoker Alcohol: Denies ETOH Use Drugs: Denies Drug Use Lives In: Home Constitutional: reports: chills, fatigue, fever EENTM: denies: blurred vision, double vision, ear bleeding, ear discharge, ear drainage, ear pain, ear ringing, eye pain, eye redness, hearing loss, mouth pain, mouth swelling, nasal discharge, nose bleeding, nose congestion, nose p ain, photophobia, tearing, throat pain, throat swelling, voice changes, others Respiratory: denies: cough, hemoptysis, orthopnea, SOB at rest, shortness of breath, SOB with excertion, stridor, wheezing, others Cardiovascular: reports: chest pain, dizzy spells Gastrointestinal: reports: abdominal pain, nausea, poor fluid intake, vomiting Genitourinary: reports: hematuria Neurological: denies: dizziness, fainting, headache, left sided numbness, left sided weakness, numbness, paresthesia, pre-existing deficit, right sided numbness, right sided weakness, seizure, speech problems, tingling, tremors, weakness, others Musculoskeletal: denies: back pain, gout, joint pain, joint swelling, muscle pain, muscle stiffness, neck pain, others Integumetry: denies: bruises, change in color, change in hair/nails, dryness, laceration, lesions, lumps, rash, wounds, others Allergic/Immunocompromised: denies: Difficulty Healing, Frequent Infections, Hives, Itching, others Hematologic/Lymphatic: denies: anemia, blood clots, easy bleeding, easy bruising, swollen glands, others Endocrine: denies: excessive hunger, excessive sweating, excessive thirst, excessive urination, flushing, intolerance to cold, intolerance to heat, unexplained weight gain, unexplained weight loss, others Psychiatric: denies: anxiety, bipolar disorder, depression, hopeless, panic disorder, schizophrenia, sleepless, suicidal, others Physical Exam General Appearance: Mild Distress HEENT: Pharynx Normal, Other (Mucous membrane dry) Neck: NOT DONE Respiratory: No Accessory Muscle Use, No Respiratory Distress, Normal Breath Sounds Cardiovascular: No Edema, No Murmur, Tachycardia Breast Exam: Deferred Gastrointestinal: Other (Bilateral flank tenderness, left-sided CVA tenderness) Genitalia: Deferred Pelvic: Deferred Rectal: Deferred Extremities: No calf tenderness, Normal capillary refill, Normal inspection, Normal range of motion, Non-tender, No pedal edema Neurologic: NOT DONE Cerebellar Function: NOT DONE Reflexes: NOT DONE Skin: NOT DONE Lymphatic: NOT DONE EKG EKG : Comments Sinus tachycardia Was a procedure done? Was a procedure done?: No GI differential Dx Differential Diagnosis: Gastritis/PUD, Urolithiasis, Dehydration, Electrolyte Imbalance, Stress Ulcer X-Ray, Labs, Meds, VS Vital Signs Date Time Temp Pulse Resp B/P (MAP) Pulse Ox O2 Delivery O2 Flow Rate FiO2 12/26/24 20:21 99.6 139 15 106/83 99 99.6 12/26/24 20:11 136 Lab Test 12/26/24 22:05 12/26/24 21:17 Range/Units Troponin I High Sensitivity < 3 L < 3 L </=34 ng/L White Blood Count 5.9 4.4-10.8 10^3/uL Red Blood Count 4.65 4.0-5.20 10^6/uL Hemoglobin 12.4 12.2-16.2 g/dL Hematocrit 37.0 36.0-46.0 % Mean Corpuscular Volume 79.5 L 80.0-100.0 fL Mean Corpuscular Hemoglobin 26.7 L 28.0-32.0 pg Mean Corpuscular Hemoglobin Concent 33.6 32.0-36.0 g/dL Red Cell Distribution Width 17.1 H 11.8-14.3 % Platelet Count 238 140-450 10^3/uL Mean Platelet Volume 9.2 6.9-10.8 fL Neutrophils (%) (Auto) 76.1 37.0-80.0 % Lymphocytes (%) (Auto) 16.6 10.0-50.0 % Monocytes (%) (Auto) 6.5 0.0-12.0 % Eosinophils (%) (Auto) 0.5 0.0-7.0 % Basophils (%) (Auto) 0.3 0.0-2.0 % Neutrophils # (Auto) 4.5 1.6-8.6 10 ^3/uL Lymphocytes # (Auto) 1.0 0.4-5.4 10 ^3/uL Monocytes # (Auto) 0.4 0-1.3 10 ^3/uL Eosinophils # (Auto) 0 0-0.8 10 ^3/uL Basophils # (Auto) 0 0-0.2 10 ^3/uL Nucleated Red Blood Cells 0.1 % D-Dimer, Quantitative 0.82 H 0.0-0.49 mg/L FEU Sodium Level 142 136-145 mmol/L Potassium Level 4.0 3.5-5.1 mmol/L Chloride Level 107 98-107 mmol/L Carbon Dioxide Level 23 20-31 mmol/L Anion Gap 12 5-15 Blood Urea Nitrogen 12 9-23 mg/dL Creatinine 0.73 0.550-1.02 mg/dL Glomerular Filtration Rate Calc 112 >90 mL/min BUN/Creatinine Ratio 16.4 10.0-20.0 Serum Glucose 93 74-106 mg/dL Lactic Acid Level 1.8 0.4-2.0 mmol/L Calcium Level 9.5 8.7-10.4 mg/dL Total Bilirubin < 0.2 L 0.2-1.0 mg/dL Aspartate Amino Transferase (AST) 84 H 13-40 U/L Alanine Aminotransferase (ALT) 79 H 7-40 U/L Alkaline Phosphatase 163 H 46-116 U/L Total Protein 7.5 5.7-8.2 g/dL Albumin 4.7 3.2-4.8 g/dL Current Medications Medications (Trade) Dose Ordered Sig/Arturo Route Start Time Stop Time Status Last Admin Piperacillin Sod/ Tazobactam Sod 100 ml @ 100 mls/hr ONCE ONCE IV 12/26/24 22:15 12/26/24 23:14 DC 12/27/24 02:00 Acetaminophen (Tylenol Tablet) 650 mg ONCE ONCE PO 12/26/24 22:45 12/26/24 22:46 DC 12/26/24 22:00 X-Ray, Labs, Meds, VS Comment CT abdomen shows IMPRESSION: 1. No hydronephrosis. 2. Nonobstructive left inferior caliceal stone measuring 5 mm. 3. No distal ureterolithiasis Time of 1ST Reevaluation: 03:00 Reevaluation 1ST: Eloped Patient Education/Counseling: Diagnosis, Treatment Family Education/Counseling: No Family Present SEPSIS Sepsis Screen Date sepsis recognized/suspect: Dec 26, 2024 Time Sepsis recognized/suspect: 2021 Recent Procedure: No On Antibiotic Therapy: No Respiratory Rate >20: No Heart Rate >90: Yes Temp<36 C (96.8 F) or >38.3 C: No SBP <90 or MAP <65 mmHG: No New Acute Mental Status Change: No Is the patient on CPAP, BIPAP,: No Physician Orders Electrocardigram (12/26/24 21:22) Electrocardigram (12/26/24 23:22) Urinalysis (12/26/24 20:37) Ct Ab Pel Wo Con-No Oral Or Iv (12/26/24 20:37) Blood Culture (12/26/24 20:37) Test, Urine (12/26/24 20:37) Vital Signs Date Time Temp Pulse Resp B/P (MAP) Pulse Ox O2 Delivery O2 Flow Rate FiO2 12/26/24 20:21 99.6 139 15 106/83 99 99.6 12/26/24 20:11 136 Laboratory Tests Test 12/26/24 21:17 Lactic Acid Level 1.8 mmol/L (0.4-2.0) White Blood Count 5.9 10^3/uL (4.4-10.8) Medications Medications Dose Ordered Sig/Arturo Route Start Time Stop Time Status Last Admin Dose Admin Acetaminophen 650 mg ONCE ONCE PO 12/26/24 22:45 12/26/24 22:46 DC 12/26/24 22:00 Piperacillin Sod/ Tazobactam Sod 100 ml @ 100 mls/hr ONCE ONCE IV 12/26/24 22:15 12/26/24 23:14 DC 12/27/24 02:00 Departure 1 Departure Time of Disposition: 05:12 Impression: Primary Impression: Calculus of kidney Disposition: 07 LEFT AWOL/ELOPED Condition: Fair Comments Patient eloped during medical management, urine studies could not be done as the sample was not provided. Critical Care Note Critical Care Time?: No Stability Stability form required: HECTOR Claros RESIDENT Dec 26, 2024 21:44
[2024-12-26] MEDS: ACETAMINOPHEN 325 MG TAB PO ONE (22:00)
[2024-12-26 22:13] LABS: Albumin 4.7 g/dL (3.2-4.8); Anion Gap 12 (5-15); BUN/Creatinine Ratio 16.4 (10.0-20.0); Blood Urea Nitrogen 12 mg/dL (9-23); Calcium 9.5 mg/dL (8.7-10.4); Carbon Dioxide 23 mmol/L (20-31); Chloride 107 mmol/L (98-107); Glucose 93 mg/dL (74-106); Potassium 4.0 mmol/L (3.5-5.1); Sodium 142 mmol/L (136-145); Total Protein 7.5 g/dL (5.7-8.2)
[2024-12-26 22:15] LABS: Alanine Aminotransferase 79 U/L (7-40); Alkaline Phosphatase 163 U/L (46-116); Bilirubin, Total < 0.2 mg/dL (0.2-1.0)
--- NOTE | 2024-12-26 23:22 | ECG ---
[facility] Test Date: 2024-12-26 Test Time: 20:10:21 Pat Name: DARREN SALEH Department: ED Room: Gender: F Household Worker: raul : 1990 Requested By: EMERGENCY EMERGENCY Order Number: [id number] Reading MD: Juan Adams Measurements Intervals [place] Rate: 136 P: 79 MD: 136 QRS: 82 QRSD: 94 T: 24 QT: 286 QTc: 431 Interpretive Statements Sinus tachycardia LAE, consider biatrial enlargement Artifact in lead(s) I,II,III,aVR,aVL,aVF,V1,V2,V3,V4,V5,V6 Electronically Signed On 12-28-2024 15:23:35 PDT by Juan Adams Please click the below link to view image of tracing.
[2024-12-27] MEDS: PIPERACILLIN-TAZOB 3.375GM 100 ML IV ONE (02:00)
[2024-12-27] MEDS: TAMSULOSIN HYDROCHLORIDE 0.4 MG CAP PO ONE (02:46)
[2024-12-27] MEDS: SODIUM CHLORIDE 0.9% 1,000 ML IVB ONE (04:31)
== END 2024-12-27 04:30 | disposition left against medical advice (07) ==
LOC: ER 20:11
DX: N20.0 Calculus of kidney (principal); Z88.8 Allergy status to other drugs, medicaments and biological substances; Z90.710 Acquired absence of both cervix and uterus
CPT/HCPCS: 36415; 74176; 80053; 83605; 84484; 85025; 85379; 87040; 93005; 96365; 99285; J2543